=== PATIENT | male | born 1995 | race Two or more races ===

== ENCOUNTER 2019-04-11 03:49 | Emergency (ER) | payer MEDICAID ==
[~2019-04-11] VITALS: Ht 170.2 cm; Wt 72.6 kg
[2019-04-11 07:35] VITALS: BP 126/70
== END 2019-04-11 07:43 | disposition home or self-care (01) ==
LOC: ER 03:49
DX: Z48.01 Encounter for change or removal of surgical wound dressing (principal); F17.210 Nicotine dependence, cigarettes, uncomplicated

== ENCOUNTER 2019-04-23 03:21 | Emergency (ER) | payer MEDICAID ==
[~2019-04-23] VITALS: Ht 170.2 cm; Wt 72.6 kg
[2019-04-23 04:00] VITALS: BP 131/77
== END 2019-04-23 04:34 | disposition home or self-care (01) ==
LOC: ER 03:26
DX: Z48.01 Encounter for change or removal of surgical wound dressing (principal); F17.210 Nicotine dependence, cigarettes, uncomplicated